=== PATIENT | male | born 2000 | race African-American/Black ===

== ENCOUNTER 2022-02-25 13:38 | Emergency (ER) | payer OTHER ==
[~2022-02-25] VITALS: Ht 180.3 cm; Wt 63.6 kg
[2022-02-25 13:40] VITALS: BP 127/75
[2022-02-25] MEDS ORDERED: MUPI30CR TOP (15:50)
== END 2022-02-25 16:02 | disposition home or self-care (01) ==
LOC: M ED 13:38
DX: S90.211A Contusion of right great toe with damage to nail, initial encounter (principal); L60.0 Ingrowing nail; Y92.9 Unspecified place or not applicable; Y93.66 Activity, soccer; Y99.9 Unspecified external cause status

== ENCOUNTER 2023-10-29 18:52 | Emergency (ER) | payer OTHER ==
[~2023-10-29] VITALS: Ht 180.3 cm; Wt 64.4 kg
[~2023-10-29 18:52] MED LIST: MUPI30CR TOP
[2023-10-29] MEDS ORDERED: METH-1164 PO (23:51)
[2023-10-29] MEDS ORDERED: IBUP-1022 PO (23:51)
[2023-10-29] MEDS: methocarbamoL 500 MG TAB PO ONE (23:57)
[2023-10-30 00:03] VITALS: BP 128/88; TEMP 97.9; O2SAT 100
== END 2023-10-30 00:05 | disposition home or self-care (01) ==
LOC: M ED 18:52
DX: S43.402A Unspecified sprain of left shoulder joint, initial encounter (principal); X50.0XXA Overexertion from strenuous movement or load, initial encounter; F10.10 Alcohol abuse, uncomplicated; Y92.9 Unspecified place or not applicable; Y93.9 Activity, unspecified; Y99.1 Military activity; Z79.1 Long term (current) use of non-steroidal anti-inflammatories (NSAID); Z79.899 Other long term (current) drug therapy